=== PATIENT | female | born 1995 ===

== ENCOUNTER → 2018-08-27 21:46 | Emergency (ER) | payer OTHER ==
[~2018-08-27 21:46] MED LIST: Famotidine TAB* 20 MG PO ONE; guaiFENesin/CODIEN 100MG-10MG* 5 ML UDC PO ONE
[2018-08-27 23:20] LABS: ABS Basophils 0 10^3/ul (0-0.2); ABS Eosinophils 0.2 10^3/ul (0-0.6); ABS Lymphocytes 1.5 10^3/ul (1.0-4.8); ABS Monocytes 0.6 10^3/ul (0-0.8); ABS Neutrophils 4.3 10^3/ul (1.5-7.7); ABS Nucleated RBC 0 10^3/ul; Eosinophil % 2.4 % (0-6); Hematocrit 38 % (35-47); Hemoglobin 13.1 g/dl (12.0-16.0); Mean Corpuscular HGB Conc 34 g/dl (31-36); Mean Corpuscular Hemoglobin 34 pg (27-31); Mean Corpuscular Volume 101 fL (80-97); Mean Platelet Volume 6.6 um3 (7.4-10.4); Nucleated Red Blood Cells % 0; Platelet Count 252 10^3/ul (150-450); Red Cell Distribution Width 13 % (10.5-15); White Blood Count 6.6 10^3/ul (3.5-10.8)
--- NOTE | 2018-08-27 23:58 | ED ---
Respiratory - HPI Summary HPI Summary: 22-year-old female presents with worsening cough for the past couple days. She states she's had a dry cough for the past couple months. She states that today she developed epigastric pain. She also admits to some diarrhea. She admits to potential low-grade fever. She did not take anything for her symptoms. States her cough is productive. She admits to slight sore throat. She admits some nasal congestion. She denies any headache. No nausea and no vomiting. She has a history of asthma. - History of Current Complaint Chief Complaint: EDAbdPain Stated Complaint: COUGH/ACHES/ABD PAIN Time Seen by Provider: 08/27/18 22:54 Pain Intensity: 5 - Allergy/Home Medications Allergies/Adverse Reactions: Allergies Allergy/AdvReac Type Severity Reaction Status Date / Time amoxicillin Allergy Rash Verified 08/27/18 22:03 PMH/Surg Hx/FS Hx/Imm Hx Endocrine/Hematology History: Denies: Hx Anticoagulant Therapy Respiratory History: Reports: Hx Asthma Infectious Disease History: No Infectious Disease History: Denies: Traveled Outside the [place] in Last 30 Days - Family History Known Family History: Positive: Respiratory Disease - Social History Alcohol Use: Occasionally Substance Use Type: Reports: Marijuana Substance Use Comment - Amount & Last Used: medical use Smoking Status (MU): Light Every Day Tobacco Smoker Review of Systems Negative: Fever Negative: Chest Pain Positive: Cough. Negative: Shortness Of Breath Positive: Abdominal Pain, Diarrhea. Negative: Vomiting All Other Systems Reviewed And Are Negative: Yes Physical Exam Triage Information Reviewed: Yes Vital Signs On Initial Exam: Initial Vitals Temp Pulse Resp BP Pulse Ox 98.5 F 76 16 124/76 96 08/27/18 22:00 08/27/18 22:00 08/27/18 22:00 08/27/18 22:00 08/27/18 22:00 Vital Signs Reviewed: Yes Appearance: Positive: Well-Appearing Skin: Positive: Warm, Dry Head/Face: Positive: Normal Head/Face Inspection Eyes: Positive: Normal, EOMI, NATASHA, Conjunctiva Clear ENT: Positive: Normal ENT inspection, Pharynx normal, TMs normal Neck: Positive: Supple, Nontender, No Lymphadenopathy Respiratory/Lung Sounds: Positive: Clear to Auscultation, Breath Sounds Present Cardiovascular: Positive: Normal, RRR Abdomen Description: Positive: Nontender, Soft Bowel Sounds: Positive: Present Musculoskeletal: Positive: Normal Neurological: Positive: Normal Psychiatric: Positive: Normal Diagnostics - Vital Signs Vital Signs Temp Pulse Resp BP Pulse Ox 08/27/18 22:00 98.5 F 76 16 124/76 96 - Laboratory Lab Results: Lab Results 08/27/18 08/27/18 08/27/18 Range/Units 23:10 23:10 23:10 WBC 6.6 (3.5-10.8) 10^3/ul RBC 3.80 L (4.00-5.40) 10^6/ul Hgb 13.1 (12.0-16.0) g/dl Hct 38 (35-47) % MCV 101 H (80-97) fL MCH 34 H (27-31) pg MCHC 34 (31-36) g/dl RDW 13 (10.5-15) % Plt Count 252 (150-450) 10^3/ul MPV 6.6 L (7.4-10.4) um3 Neut % (Auto) 64.8 (38-83) % Lymph % (Auto) 23.0 L (25-47) % Dewitt % (Auto) 9.3 H (0-7) % Eos % (Auto) 2.4 (0-6) % Baso % (Auto) 0.5 (0-2) % Absolute Neuts (auto) 4.3 (1.5-7.7) 10^3/ul Absolute Lymphs (auto) 1.5 (1.0-4.8) 10^3/ul Absolute Monos (auto) 0.6 (0-0.8) 10^3/ul Absolute Eos (auto) 0.2 (0-0.6) 10^3/ul Absolute Basos (auto) 0 (0-0.2) 10^3/ul Absolute Nucleated RBC 0 10^3/ul Nucleated RBC % 0 Sodium 140 (135-145) mmol/L Potassium 3.8 (3.5-5.0) mmol/L Chloride 106 (101-111) mmol/L Carbon Dioxide 28 (22-32) mmol/L Anion Gap 6 (2-11) mmol/L BUN 16 (6-24) mg/dL Creatinine 0.82 (0.51-0.95) mg/dL Est GFR ( Amer) 106.5 (>60) Est GFR (Non-Af Amer) 88.0 (>60) BUN/Creatinine Ratio 19.5 (8-20) Glucose 108 H (70-100) mg/dL Lactic Acid 0.6 (0.5-2.0) mmol/L Calcium 9.4 (8.6-10.3) mg/dL Total Bilirubin 0.40 (0.2-1.0) mg/dL AST 19 (13-39) U/L ALT 14 (7-52) U/L Alkaline Phosphatase 51 (34-104) U/L C-Reactive Protein 3.35 (<8.01) mg/L Total Protein 6.6 (6.4-8.9) g/dL Albumin 4.3 (3.2-5.2) g/dL Globulin 2.3 (2-4) g/dL Albumin/Globulin Ratio 1.9 (1-3) Lipase 32 (11.0-82.0) U/L Beta HCG, Quant < 0.60 mIU/mL Result Diagrams: 08/27/18 23:10 08/27/18 23:10 Lab Statement: Any lab studies that have been ordered have been reviewed, and results considered in the medical decision making process. - Radiology chest Xray Interpretation: No Acute Changes Radiology Interpretation Completed By: ED Physician Disposition - Course Course Of Treatment: 22-year-old female presents with worsening cough for the past couple days. She states she's had a dry cough for the past couple months. She states that today she developed epigastric pain. She also admits to some diarrhea. She admits to potential low-grade fever. She did not take anything for her symptoms. States her cough is productive. She admits to slight sore throat. She admits some nasal congestion. She denies any headache. No nausea and no vomiting. She has a history of asthma. On exam lungs clear to auscultation. Pharynx normal. Abdomen soft nontender. Chest x-ray read by me as normal. Labs within normal limits. Due to the history of the chronic cough could be related to asthma or to GERD. We'll try treating for GERD with Pepcid. Gave steroid and cough medication as likely has a new bronchitis on top of the chronic cough. Told to follow with primary. Patient understands agrees with plan. - Differential Dx - Cardiopulmonary Differential Diagnoses - Cardiopulmonary: Asthma, Bronchitis, Lower Resp Infection - Diagnoses Provider Diagnoses: Bronchitis Discharge - Sign-Out/Discharge Documenting (check all that apply): Patient Departure - Discharge Plan Condition: Good Disposition: HOME Prescriptions: Famotidine TAB* [Pepcid 20 MG TAB*] 20 mg PO BID #27 tab guaiFENesin/CODIEN 100MG-10MG* [Robitussin AC 100Mg-10Mg*] 5 ml PO Q6H PRN #100 ml MDD 20ml PRN Reason: Cough predniSONE TAB* [Deltasone TAB*] 50 mg PO DAILY #4 tab Patient Education Materials: Acute Bronchitis (ED) Referrals: Anali Glasgow [facility] [employer] [Primary Care Provider] - Additional Instructions: Take cough medication 5ml (1 teaspoon) every 6 hours as needed cough Take steroid once a day starting tomorrow for 4 days take pepcid twice a day for 14 days Take Tylenol or ibuprofen for pain every 6 hours Return to ED if develop any new or worsening symptoms - Billing Disposition and Condition Condition: GOOD Disposition: Home
[2018-08-28 01:55] VITALS: BP 112/79
--- NOTE | 2018-08-28 08:02 | RAD ---
HISTORY: cough COMPARISONS: None VIEWS: 4: Frontal dual-energy and lateral views of the chest. FINDINGS: CARDIOMEDIASTINAL SILHOUETTE: The cardiomediastinal silhouette is normal. JONI: The joni are normal. PLEURA: The costophrenic angles are sharp. No pleural abnormalities are noted. LUNG PARENCHYMA: The lungs are clear. ABDOMEN: The upper abdomen is clear. There is no subphrenic gas. BONES AND SOFT TISSUES: No bone or soft tissue abnormalities are noted. OTHER: None. IMPRESSION: NO ACTIVE CARDIOPULMONARY DISEASE. R0
== END | disposition home or self-care (01) ==
LOC: ED 21:46
DX: J40 Bronchitis, not specified as acute or chronic (principal); R05 Cough; R10.9 Unspecified abdominal pain; R19.7 Diarrhea, unspecified; F17.210 Nicotine dependence, cigarettes, uncomplicated
CPT/HCPCS: 36415; 71046; 80053; 83605; 83690; 84702; 85025; 86140; 99283; A9270-GY

== ENCOUNTER 2018-10-26 09:03 | Emergency (ER) | payer OTHER ==
[2018-10-26 09:16] VITALS: BP 94/67
--- NOTE | 2018-10-26 09:38 | UC ---
Complaint Female HPI - HPI Summary HPI Summary: 22-year-old woman here with a chief complaint of burning with urination. This started yesterday. She has to be more frequently there are smaller amounts she feels like she needs to go time and it hurts when she urinates. Discussed discomfort in the suprapubic region over her bladder. Denies any flank pain or fevers. Denies any concern of STI. Her last menstrual period was 5 weeks ago. She stopped taking control pills 5 weeks ago. She has been sexually active with protection. - History Of Current Complaint Chief Complaint: UCGU Stated Complaint: URINARY ISSUE Time Seen by Provider: 10/26/18 09:15 Hx Last Menstrual Period: 10/08/18 Pain Intensity: 3 - Allergies/Home Medications Allergies/Adverse Reactions: Allergies Allergy/AdvReac Type Severity Reaction Status Date / Time amoxicillin Allergy Rash Verified 10/26/18 09:16 Home Medications: Home Medications Acyclovir* [Zovirax 400 MG TAB*] 1,000 mg PO DAILY 10/26/18 [History Confirmed 10/26/18] Trintellix 20 mg PO DAILY 10/26/18 [History Confirmed 10/26/18] PMH/Surg Hx/FS Hx/Imm Hx Previously Healthy: Yes Other History Of: Negative For: Anticoagulant Therapy - Surgical History Surgical History: None - Family History Known Family History: Positive: Respiratory Disease - Social History Alcohol Use: Occasionally Substance Use Type: Marijuana Substance Use Comment - Amount & Last Used: medical use Smoking Status (MU): Former Smoker Review of Systems All Other Systems Reviewed And Are Negative: Yes Constitutional: Positive: Negative Skin: Positive: Negative Eyes: Positive: Negative ENT: Positive: Negative Respiratory: Positive: Negative Cardiovascular: Positive: Negative Gastrointestinal: Positive: Abdominal Pain - see hpi Genitourinary: Positive: Dysuria, Frequency, Urgency. Negative: Vaginal/Penile Discharge Motor: Positive: Negative Neurovascular: Positive: Negative Musculoskeletal: Positive: Negative Neurological: Positive: Negative Psychological: Positive: Negative Is Patient Immunocompromised?: No Physical Exam Triage Information Reviewed: Yes Appearance: Well-Appearing, No Pain Distress, Well-Nourished Vital Signs: Initial Vital Signs Temp 99.8 F 10/26/18 09:12 Pulse 110 10/26/18 09:12 Resp 16 10/26/18 09:12 BP 94/67 10/26/18 09:12 Pulse Ox 99 10/26/18 09:12 Vital Signs Reviewed: Yes Eye Exam: Normal Eyes: Positive: Conjunctiva Clear Neck exam: Normal Neck: Positive: Supple Respiratory: Positive: Lungs clear, Normal breath sounds, No respiratory distress Cardiovascular: Positive: Tachycardia Abdomen Description: Positive: Soft, Other: - Mild tenderness to palpation in the suprapubic area. No rebound.. Negative: CVA Tenderness (R), CVA Tenderness (L), Distended, Guarding Musculoskeletal Exam: Normal Musculoskeletal: Positive: Strength Intact, ROM Intact Neurological Exam: Normal Neurological: Positive: Alert, Muscle Tone Normal Psychological Exam: Normal Psychological: Positive: Age Appropriate Behavior Skin Exam: Normal Complaint Female Dx - Course Course Of Treatment: I discussed the urine results with the patient and the plan is to treat with Macrobid 100 mg by mouth twice a day. She'll follow-up with her regular doctor get reevaluated sooner if worse or any questions or concerns. - Differential Dx/Diagnosis Provider Diagnosis: UTI (urinary tract infection) Discharge - Sign-Out/Discharge Documenting (check all that apply): Patient Departure All imaging exams completed and their final reports reviewed: No Studies - Discharge Plan Condition: Stable Disposition: HOME Prescriptions: Nitrofurantoin Monohyd/M-Cryst [Macrobid 100 mg Capsule] 100 mg PO BID #14 cap Patient Education Materials: Urinary Tract Infection in Women (ED) Referrals: Anali Glasgow NP [Primary Care Provider] - Additional Instructions: FOLLOW UP WITH YOUR DOCTOR IF NOT COMPLETELY IMPROVED. GET RECHECKED FOR ANY WORSENING OF YOUR CONDITION OR QUESTIONS OR CONCERNS. - Billing Disposition and Condition Condition: STABLE Disposition: Home
--- NOTE | 2018-10-29 15:20 | UC ---
- Progress Note Progress Note: 10/29/2018 Urine culture positive for E.coli Pt Rx Macrobid PO Culture sensitivity reports showe sensitivity to Nitrofurantoin. No change Mei Williamson PA-C Course/Dx - Diagnoses Provider Diagnoses: UTI (urinary tract infection) Discharge - Sign-Out/Discharge Documenting (check all that apply): Patient Departure - d/c home All imaging exams completed and their final reports reviewed: No Studies - Discharge Plan Condition: Stable Disposition: HOME Prescriptions: Nitrofurantoin Monohyd/M-Cryst [Macrobid 100 mg Capsule] 100 mg PO BID #14 cap Patient Education Materials: Urinary Tract Infection in Women (ED) Referrals: Anali Glasgow NP [Primary Care Provider] - Additional Instructions: FOLLOW UP WITH YOUR DOCTOR IF NOT COMPLETELY IMPROVED. GET RECHECKED FOR ANY WORSENING OF YOUR CONDITION OR QUESTIONS OR CONCERNS. - Billing Disposition and Condition Condition: STABLE Disposition: Home
== END 2018-10-26 09:45 | disposition home or self-care (01) ==
LOC: UCEAST 09:03
DX: N39.0 Urinary tract infection, site not specified (principal); Z88.0 Allergy status to penicillin; Z87.891 Personal history of nicotine dependence
CPT/HCPCS: 81003; 84702; 87077; 87086; 87186; 99212; G0463